=== PATIENT | male | born 1995 | race Caucasian/White ===

== ENCOUNTER 2016-07-14 16:54 | Emergency (ER) | payer OTHER, SELFPAY ==
[~2016-07-14] VITALS: Ht 180.3 cm; Wt 99.8 kg
[2016-07-14] MEDS ORDERED: ADACEL/BOOSTRIX VACCINE (DIPHTH/PERTUSS/ACELL/TETANUS)0.5ML SYR (90715) IM ONE (18:00)
[2016-07-14] MEDS ORDERED: AUGMENTIN 875 MG TAB PO ONE (18:00)
[2016-07-14] MEDS ORDERED: PERCOCET 5MG/325MG TAB PO ONE (18:00)
[2016-07-14] MEDS ORDERED: LIDOCAINE 1% MDV 20ML VIAL XX ONE (18:45)
[2016-07-14] MEDS ORDERED: AUGM875T27 PO (19:30)
[2016-07-14] MEDS ORDERED: NAPR500T PO (19:30)
[2016-07-14] MEDS ORDERED: NORC5TAB PO (19:32)
[2016-07-14 19:53] VITALS: BP 152/82
--- NOTE | 2016-07-15 11:10 | REP ---
RIGHT HAND: Five views of the right hand are performed. There is no evidence of acute fracture or dislocation. Soft tissue disruption is seen at the distal 5th digit. There is no radiopaque foreign body in the soft tissues. IMPRESSION: No evidence of fracture or foreign body. Signed by Mark Anthony Gutierrez MD 07/15/2016 01:56 P
== END 2016-07-14 19:50 | disposition home or self-care (01) ==
LOC: M ED 17:46
DX: S61.252A Open bite of right middle finger without damage to nail, initial encounter (principal); S61.256A Open bite of right little finger without damage to nail, initial encounter; W54.0XXA Bitten by dog, initial encounter; Y92.89 Other specified places as the place of occurrence of the external cause; Y93.K9 Activity, other involving animal care; Y99.8 Other external cause status

== ENCOUNTER 2021-07-26 23:44 | Emergency (ER) | payer SELFPAY ==
[~2021-07-26] VITALS: Ht 180.3 cm; Wt 95.5 kg
[2021-07-26 23:44] VITALS: BP 161/91
[~2021-07-26 23:44] MED LIST: AUGM875T28 PO; CEPH500C PO; NAPR-837 PO; NORC1TAB7 PO
[2021-07-27] MEDS ORDERED: FLUORESCEIN OPHTH 1 MG STRIP OU ONE (00:25)
[2021-07-27] MEDS ORDERED: TETRACAINE 0.5% OPHTH SOLN 4ML OU ONE (00:25)
[2021-07-27] MEDS ORDERED: CIPROFLOXACIN 0.3% OPHTH SOLN 2.5ML OS ONE (00:55)
[2021-07-27] MEDS ORDERED: CIPR0.3S6 OS (00:59)
== END 2021-07-27 01:57 | disposition home or self-care (01) ==
LOC: M ED 23:44
DX: T15.02XA Foreign body in cornea, left eye, initial encounter (principal); X58.XXXA Exposure to other specified factors, initial encounter; Y92.89 Other specified places as the place of occurrence of the external cause